=== PATIENT | female | born 1970 ===

== ENCOUNTER → 2021-07-25 13:21 | Outpatient (BNVA) | payer OTHER, SELFPAY | PROVIDERS: PCP Nurse Practitioner Adult Health | DX: N20.0 Calculus of kidney (principal) | CPT/HCPCS: 51798; 99212 ==

== ENCOUNTER 2021-09-03 15:52 | Outpatient (REF) | payer OTHER, SELFPAY ==
--- NOTE | ~2021-09-03 | US_ITS ---
EXAMINATION: US RETROPERITONEAL LIMITED (RENAL ONLY) CLINICAL INFORMATION: Calculus of kidney. COMPARISON: X-ray KUB 12/02/2017 and 11/11/2017. TECHNIQUE: Real-time imaging of the kidneys. FINDINGS: RIGHT KIDNEY: 11.0 x 5.4 x 5.7 cm (SAG x AP x TRV). The kidney is normal in size, contour, and echogenicity. Renal cortical thickness is normal. No calculi or focal parenchymal lesions. No hydronephrosis. LEFT KIDNEY: 12.0 x 5.6 x 5.1 cm (SAG x AP x TRV). The kidney is normal in size, contour, and echogenicity. Renal cortical thickness is normal. No calculi or focal parenchymal lesions. No hydronephrosis. US/US renal BI IMPRESSION: Normal renal ultrasound. No renal calculi are visualized..
== END 2021-09-03 15:53 | disposition home or self-care (01) ==
LOC: HO.US 15:52
DX: N20.0 Calculus of kidney (principal)
CPT/HCPCS: 76775

== ENCOUNTER 2022-05-29 09:00 | Outpatient (REF) | payer OTHER, SELFPAY ==
--- NOTE | ~2022-05-29 | US_ITS ---
EXAMINATION: US RETROPERITONEAL LIMITED (RENAL ONLY) CLINICAL INFORMATION: Calculus of kidney. COMPARISON: Renal ultrasound 09/03/2021. X-ray KUB 12/02/2017 and 11/11/2017. TECHNIQUE: Real-time imaging of the kidneys. FINDINGS: RIGHT KIDNEY: 11.1 x 5.0 x 5.0 cm (SAG x AP x TRV). The kidney is normal in size, contour, and echogenicity. Renal cortical thickness is normal. Small 7 x 5 x 4 mm cyst in the upper pole. No renal calculi or hydronephrosis. LEFT KIDNEY: 11.0 x 5.2 x 5.6 cm (SAG x AP x TRV). The kidney is normal in size, contour, and echogenicity. Renal cortical thickness is normal. No calculi or focal parenchymal lesions. No hydronephrosis. US/US renal BI IMPRESSION: Small right renal cyst. No stone seen.
== END 2022-05-29 09:01 | disposition home or self-care (01) ==
LOC: HO.US 09:00
PROVIDERS: PCP Nurse Practitioner Family
DX: N20.0 Calculus of kidney (principal)
CPT/HCPCS: 76775

== ENCOUNTER 2022-06-24 10:44 | Outpatient (REF) | payer OTHER, SELFPAY ==
[2022-06-24 17:08] LABS: Urine Cytology See Pathology rpt
== END 2022-06-24 10:45 | disposition home or self-care (01) ==
LOC: HO.LAB 10:44
PROVIDERS: PCP Nurse Practitioner Family; Visit Provider Nurse Practitioner Family
DX: R31.29 Other microscopic hematuria (principal); N20.0 Calculus of kidney; N28.1 Cyst of kidney, acquired
CPT/HCPCS: 88112; 99212

== ENCOUNTER 2022-11-18 11:04 | Outpatient (REF) | payer OTHER, SELFPAY ==
--- NOTE | ~2022-11-18 | US_ITS ---
EXAMINATION: US RETROPERITONEAL LIMITED (RENAL ONLY) CLINICAL INFORMATION: Calculus of kidney. COMPARISON: Renal ultrasound 05/29/2022 TECHNIQUE: Real-time imaging of the kidneys. FINDINGS: RIGHT KIDNEY: 10.4 x 5.4 x 4.5 cm (SAG x AP x TRV). The kidney is normal in size, contour, and echogenicity. Renal cortical thickness is normal. No renal calculi or hydronephrosis. Benign-appearing 0.7 cm renal cyst, no follow-up imaging recommended. LEFT KIDNEY: 11.4 x 5.6 x 5.8 cm (SAG x AP x TRV). The kidney is normal in size, contour, and echogenicity. Renal cortical thickness is normal. No calculi or focal parenchymal lesions. No hydronephrosis. US/US renal BI IMPRESSION: No hydronephrosis or nephrolithiasis.
== END 2022-11-18 11:05 | disposition home or self-care (01) ==
LOC: HO.US 11:04
PROVIDERS: Visit Provider Nurse Practitioner Family
DX: N20.0 Calculus of kidney (principal); N28.1 Cyst of kidney, acquired
CPT/HCPCS: 76775

== ENCOUNTER → 2022-12-23 15:32 | Outpatient (BNVA) | payer OTHER, SELFPAY | PROVIDERS: Visit Provider Nurse Practitioner Family | DX: N28.1 Cyst of kidney, acquired (principal); N20.0 Calculus of kidney | CPT/HCPCS: 99212 ==

== ENCOUNTER 2023-12-03 14:11 | Outpatient (REF) | payer OTHER, SELFPAY ==
--- NOTE | ~2023-12-03 | US_ITS ---
EXAMINATION: US RETROPERITONEAL LIMITED (RENAL ONLY) CLINICAL INFORMATION: Calculus of kidney. . COMPARISON: Renal ultrasound 11/18/2022 and 05/29/2022. X-ray abdomen KUB 12/02/2017 and 11/11/2017. TECHNIQUE: Real-time imaging of the kidneys. Limited visualization due to bowel gas. FINDINGS: RIGHT KIDNEY: 10.7 x 5.4 x 5.8 cm (SAG x AP x TRV). No hydronephrosis. No renal calculi. Renal cortical thickness is normal. Limited visualization. 0.8 cm [id number] pole pole cyst with benign features. There is no indication for follow-up imaging. LEFT KIDNEY: 11.9 x 5.2 x 5.1 cm (SAG x AP x TRV). No hydronephrosis. No renal calculi. Renal cortical thickness is normal. Limited visualization. US/US renal BI IMPRESSION: No hydronephrosis. No renal calculi.
== END 2023-12-03 14:12 | disposition home or self-care (01) ==
LOC: HO.US 14:11
PROVIDERS: PCP Nurse Practitioner Family; Visit Provider Nurse Practitioner Family
DX: N20.0 Calculus of kidney (principal)
CPT/HCPCS: 76775

== ENCOUNTER 2023-12-21 14:10 | Outpatient (AMB) | payer OTHER, SELFPAY ==
--- NOTE | 2023-12-21 14:24 | MHC.OFFVIS ---
Intake Visit Reasons: 1y/US(set) Intake Note: Patient is present for follow up kidney stone/ultrasound Imagin12/03/23 Urology Medications: Vitamin B6 Blood Thinner: none Twister Doffer Required: No Accompanied by: Self / Same As Patient Allergies No Known Allergies [No Known Allergies*] Allergy (Verified 12/21/23 14:53) Medication List - Last Reconciled 12/21/23 by FLYNN Burrell sertraline 50 mg PO DAILY tramadol 50 mg PO Q6H PRN HPI Comments Details: Angelica is a very pleasant 53-year-old a female patient of Dr. Otto. She presents to the office today for follow-up of her nephrolithiasis, microscopic hematuria, and renal cysts. In discussion with the patient today she reports since her last office visit here approximately 1 year ago she has been feeling and doing well. She currently denies any urological issues or concerns. She reports be happy with current voiding parameters. Recent renal imaging results reviewed with the patient today. Bilateral kidneys with no hydronephrosis or renal calculi. 0 voiding cm mid to lower pole cyst with benign features. That requires no follow-up imaging per radiology report. In office urinalysis results reviewed with the patient today 2+ microscopic hematuria noted. Discussed at length potential causes of microscopic hematuria. Discussed further microscopic hematuria workup. When asked she does report a previous history of nicotine dependence however denies any previous known workplace chemical exposure. When asked she continues to be compliant with vitamin B6 daily and drinking plenty of water daily. When asked denies urinary urgency, urinary frequency, incontinence, nocturia, hematuria, dysuria, foul smelling urine, changes to urinary stream, flank pain, fever, and or chills. She otherwise offers no other issues or concerns at this time. Urine cytology 06/19 Negative for high-grade urothelial carcinoma. [facility] Medical History Calculus of kidney Renal cyst Review of Systems Const All systems reviewed & are unremarkable except as noted in HPI and below Reports no additional complaints Eyes Reports no additional complaints ENT Reports no additional complaints Card Reports no additional complaints Resp Reports no additional complaints GI Reports no additional complaints Reports as per HPI Musc Reports no additional complaints Neuro Reports no additional complaints Psych Reports no additional complaints Endo Reports no additional complaints Power/Lymph Reports no additional complaints Aller/Immun Reports no additional complaints Physical Exam Const General: cooperative, healthy appearing, comfortable, no acute distress, well developed, alert and awake Orientation/consciousness: patient oriented x3 Limitations: no limitations HEENT Head: Yes normal to inspection, Yes normocephalic and Yes atraumatic Ears: hearing grossly normal bilaterally Eyes General: appearance normal, both eyes and all related structures Neck Neck: Yes normal visual inspection and Yes trachea midline Chest Chest palpation & inspection: normal inspection of the chest Resp Effort & Inspection: normal respiratory effort and able to speak in complete sentences Cardio Rate: regular rate GI Inspection: Yes normal to inspection General: Yes no CVA tenderness Back/Spine/Pelvis Back: no CVA tenderness Skin General skin exam: no rashes or lesions noted Neuro General: patient oriented x3 Extrem General: Yes normal to inspection Psych Appearance: grossly normal and well kempt Mental Status: mental status grossly normal Speech and movement: Normal speech and movement present and Clear speech present Affect: normal affect Attitude: cooperative Thought process: Normal thought process present Thought content: Normal thought content present Insight: Fair insight present (Psych) Judgement: Fair judgement present (Psych) Results AMB Urinalysis, Automated UA Leukoctes 0 Aide/uL Last Edit by [employer] on 12/21/23 14:43 UA Nitrite Negative Last Edit by [employer] on 12/21/23 14:43 UA Urobilinogen 0.2 mg/dL Last Edit by [employer] on 12/21/23 14:43 UA Protein 15 mg/dL Last Edit by [employer] on 12/21/23 14:43 UA pH 5.5 Last Edit by [employer] on 12/21/23 14:43 UA Blood 80 Olu/uL Last Edit by [employer] on 12/21/23 14:43 UA Specific [place] 1.025 Last Edit by [employer] on 12/21/23 14:43 UA Ketone Negative Last Edit by [employer] on 12/21/23 14:43 UA Bilirubin 0 mg/dL Last Edit by [employer] on 12/21/23 14:43 UA Glucose 0 mg/dL Last Edit by [employer] on 12/21/23 14:43 Results Reviewed Results Reviewed: Laboratory Last Values Urine pH (Auto) 5.5 12/21/23 14:42 Specific [place] (Auto) 1.025 12/21/23 14:42 Urine Protein (Auto) 15 mg/dL 12/21/23 14:42 Glucose (UA)(Auto) 0 mg/dL 12/21/23 14:42 Urine Ketones (Auto) Negative 12/21/23 14:42 Urine Blood (Auto) 80 Olu/uL 12/21/23 14:42 Urine Nitrite (Auto) Negative 12/21/23 14:42 Urine Bilirubin (Auto) 0 mg/dL 12/21/23 14:42 Urine Urobilinogen (Auto) 0.2 mg/dL 12/21/23 14:42 Leukocyte Esterase (Auto) 0 Aide/uL 12/21/23 14:42 Date of Service: 12/03/23 EXAMINATION: US RETROPERITONEAL LIMITED (RENAL ONLY) FINDINGS: RIGHT KIDNEY: 10.7 x 5.4 x 5.8 cm (SAG x AP x TRV). No hydronephrosis. No renal calculi. Renal cortical thickness is normal. Limited visualization. 0.8 cm psc-fi-dgyim pole pole cyst with benign features. There is no indication for follow-up imaging. LEFT KIDNEY: 11.9 x 5.2 x 5.1 cm (SAG x AP x TRV). No hydronephrosis. No renal calculi. Renal cortical thickness is normal. Limited visualization. IMPRESSION: No hydronephrosis. No renal calculi. Assessment & Plan Assessment & Plan (1) Microscopic hematuria: Code(s): R31.29 - Other microscopic hematuria Category: Medical (2) Renal cyst: Code(s): N28.1 - Cyst of kidney, acquired Category: Medical (3) Calculus of kidney: Code(s): N20.0 - Calculus of kidney Category: Medical Plan In office urinalysis results reviewed with the patient today; as noted above; will send for urine cytology Recent renal imaging results reviewed with the patient today; as noted above. Patient currently denies any bothersome urinary issues or concerns. She reports be happy with current voiding parameters. Discussed at length potential causes of microscopic hematuria; discussed further workup to include in office cystoscopy; however patient declines at this time. Discussed, educated, and stressed the importance of drinking plenty of water daily. Continue adding 1 oz of lemon juice to water daily. Will obtain renal ultrasound in 1 year. Follow-up in 1 year with imaging to be completed prior; or sooner with any issues, concerns, and or questions. Orders: Orders AMB Urinalysis Automated Today Z13.9 - Encounter for screening, unspecified US renal BI 1 Year N20.0 - Calculus of kidney, N28.1 - Cyst of kidney, acquired, R31.29 - Other microscopic hematuria Urine Cytology Today R31.29 - Other microscopic hematuria Patient Instructions: The patient had an opportunity to ask questions regarding the treatment plan. All questions were answered. Physical exam, labs, and imaging were discussed and reviewed in detail. As well as risks, benefits, and discussion of treatment choices. No major barriers to understanding were identified. The patient expressed understanding and agreement with the above treatment plan. The patient was made aware they should contact our office by phone for worsening of their current condition, the appearance of new symptoms, or with any questions or concerns. Compliance is encouraged with any medications and follow up testing that is ordered. It is a privilege to be allowed the opportunity to participate in? your urological care.? Again, if you have any questions or concerns If you have any questions or concerns please do not hesitate to contact me. The office is [phone]. This note is constructed using voice recognition software. While every effort has been made to ensure accuracy solar energy sales specialist errors may have been included. Yours sincerely, FLYNN Burrell Coding Level of Care Code Est Pt Level 3 (94799) Diagnoses Microscopic hematuria R31.29 Renal cyst N28.1 Calculus of kidney N20.0
== END 2023-12-21 14:51 | disposition home or self-care (01) ==
PROVIDERS: PCP Nurse Practitioner Family; Visit Provider Nurse Practitioner Family
DX: R31.29 Other microscopic hematuria (principal); N28.1 Cyst of kidney, acquired; N20.0 Calculus of kidney; Z13.9 Encounter for screening, unspecified
CPT/HCPCS: 99213

== ENCOUNTER 2023-12-21 14:10 | Outpatient (REF) | payer OTHER, SELFPAY ==
[2023-12-21 17:33] LABS: Urine Cytology See Pathology rpt
== END 2023-12-21 14:11 | disposition home or self-care (01) ==
LOC: HO.LNP 14:10
PROVIDERS: PCP Nurse Practitioner Family; Visit Provider Nurse Practitioner Family
DX: R31.29 Other microscopic hematuria (principal); N28.1 Cyst of kidney, acquired; N20.0 Calculus of kidney
CPT/HCPCS: 81003; 88112; 99212

== ENCOUNTER 2024-12-14 15:27 | Outpatient (REF) | payer OTHER, SELFPAY ==
--- NOTE | ~2024-12-14 | US_ITS ---
CLINICAL HISTORY: N20.0 - Calculus of kidney US renal with Color Doppler Comparison: None Findings: Right kidney normal size and echotexture, 9.5 cm length. No hydronephrosis calculus or mass. Normal color flow. Benign renal cortical cyst midpole measuring 10 x 10 x 10 mm. Left kidney normal size and echotexture, 12.0 cm length. No hydronephrosis calculus or mass. Normal color flow. Impression: 1. No nephrolithiasis or hydronephrosis. Incidental renal cortical cysts on the right. This document has been electronically signed by: Austin Gaytan MD on 12/15/2024 09:20:02
--- OUTSIDE RECORDS SUMMARY | 2024-12-14 17:42 | XMS_ITS | Clinical Summary ---
Author Organization [facility] Address [address] [place] [address] Care Team Providers Care Calender Wind Up Tender Name Role Phone Linda Dill MD Primary Care Provider [phone] Allergies No known active allergies Medications Medication Sig Dispensed Refills Start Date End Date Status traMADol (ULTRAM) 50 MG tablet TAKE 1 TABLET BY MOUTH EVERY 6 (SIX) HOURS NEEDED. 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 Atypical lobular hyperplasia (ALH) of right [address] 12/27/2019 Social History Tobacco Use Types Packs/Day Years Used Date Smoking Tobacco: Every Day Smokeless Tobacco: Never Alcohol Use Standard Drinks/Week Comments Yes 0 (1 standard drink = 0.6 oz pur e alcohol) social Sex and Gender Information Value Date Recorded Sex Assigned at Not on file Gender Identity Not on file Sexual Orientation Not on file Job Start Date Occupation Industry Not on file Not on file Not on file Last Filed Vital Signs Vital Sign Reading Time Taken Comments Blood Pressure 97/71 04/20/2024 3:46 PM EDT Pulse 90 04/20/2024 3:46 PM EDT Temperature 36.3 C (97.4 F) 04/20/2024 3:46 PM EDT Respiratory Rate - - Oxygen Saturation 98% 04/20/2024 3:46 PM EDT Inhaled Oxygen Concentration - - Weight 75.8 kg (167 lb 3.2 oz) 04/20/2024 3:46 P M EDT Height 157.5 cm (5' 2 ) 04/20/2024 3:46 PM EDT Body Mass Index 30.58 04/20/2024 3:46 PM EDT Plan of Treatment Health Maintenance Due Date Last Done Comments Hepatitis B Vaccines (1 of 3 - 3-dose series) 1968 Hepatitis C Screening 1968 COVID-19 Vaccine (#1) 1973 Pneumococcal Vaccine (1 of 2 - PCV) 1974 Depression Screening 1980 Preventative Health Evaluation 1986 Tobacco Cessation Counseling 1986 Shingrix-Zoster Vaccine (1 o f 2) 11/12/1987 Cervical Cancer Screening (Pap Smear) 1989 Colon Cancer Screening (Colonoscopy) 2013 Breast Cancer Screening (Mammogram) 2018 Influenza Vaccine (Season Ended) 2025 DTap / Tdap / Td (2 - Td or Tdap) 09/30/2025 10/01/2015, 12/11/2004 RSV Ped < 20 months Aged Out No longe r eligible based on patient's age to complete this topic Care Teams Calender Wind Up Tender Relationship Specialty Start Date End Date Linda Dill MD [id number], [place] PCP - General Family Medicine 12/27/19
== END 2024-12-14 15:28 | disposition home or self-care (01) ==
LOC: HO.US 15:27
PROVIDERS: PCP Nurse Practitioner Family; Visit Provider Nurse Practitioner Family
DX: N20.0 Calculus of kidney (principal); R31.29 Other microscopic hematuria; N28.1 Cyst of kidney, acquired
CPT/HCPCS: 76775

== ENCOUNTER → 2024-12-14 15:30 | Outpatient (BNV) | payer OTHER, SELFPAY | PROVIDERS: PCP Nurse Practitioner Family; Visit Provider Radiology Diagnostic Radiology | DX: N20.0 Calculus of kidney (principal) | CPT/HCPCS: 76775 ==

== ENCOUNTER 2024-12-19 14:26 | Outpatient (AMB) | payer OTHER, SELFPAY ==
--- NOTE | 2024-12-19 14:28 | A.OFFVIS_ITS ---
Intake Visit Reasons: 1yr/US Intake Note: Patient is present for follow up kidney stone/ultrasound Imagin12/14/24 Urology Medications: none Blood Thinner: none Oil Field Worker Required: No Accompanied by: Self / Same As Patient Allergies No Known Allergies (No Known Allergies*) Allergy (Verified 12/19/24 15:03) Medication List - Last Reconciled 12/19/24 by FLYNN Burrell atorvastatin 10 mg PO DAILY sertraline 50 mg PO DAILY tirzepatide mg subcut tramadol 50 mg PO Q6H PRN HPI Comments Details: Angelica is a very pleasant 54 year-old a female patient of Dr. Otto. She presents to the office today for follow-up of her nephrolithiasis, microscopic hematuria, and renal cysts. In discussion with the patient today she reports since her last office visit here approximately 1 year ago she has been feeling and doing well. She currently denies any urological issues or concerns. She reports be happy with current voiding parameters. Recent renal imaging results reviewed with the patient today. Bilateral kidneys with no hydronephrosis or renal calculi. Incidental renal cortical cysts on the right largest measuring 10 mm. Unable to obtain urine for urinalysis today as patient unable to void. She discusses having intentionally lost approximately 30 lb. She reports drinking plenty of water daily. When asked denies urinary urgency, urinary frequency, incontinence, nocturia, hematuria, dysuria, foul smelling urine, changes to urinary stream, flank pain, fever, and or chills. She otherwise offers no other issues or concerns at this time. Urine cytology 06/19 and 12/20 Negative for high-grade urothelial carcinoma. [facility] Medical History Renal cyst Calculus of kidney Review of Systems Const All systems reviewed & are unremarkable except as noted in HPI and below Reports no additional complaints Eyes Reports no additional complaints ENT Reports no additional complaints Card Reports no additional complaints Resp Reports no additional complaints GI Reports no additional complaints Reports as per HPI Musc Reports no additional complaints Neuro Reports no additional complaints Psych Reports no additional complaints Endo Reports no additional complaints Power/Lymph Reports no additional complaints Aller/Immun Reports no additional complaints Physical Exam Const General: cooperative, healthy appearing, comfortable, no acute distress, well developed, alert and awake Orientation/consciousness: patient oriented x3 Limitations: no limitations HEENT Head: Yes normal to inspection, Yes normocephalic and Yes atraumatic Ears: hearing grossly normal bilaterally Eyes General: appearance normal, both eyes and all related structures Neck Neck: Yes normal visual inspection and Yes trachea midline Chest Chest palpation & inspection: normal inspection of the chest Resp Effort & Inspection: normal respiratory effort and able to speak in complete sentences Cardio Rate: regular rate GI Inspection: Yes normal to inspection General: Yes no CVA tenderness Back/Spine/Pelvis Back: no CVA tenderness Skin General skin exam: no rashes or lesions noted Neuro General: patient oriented x3 Extrem General: Yes normal to inspection Psych Appearance: grossly normal and well kempt Mental Status: mental status grossly normal Speech and movement: Normal speech and movement present and Clear speech present Affect: normal affect Attitude: cooperative Thought process: Normal thought process present Thought content: Normal thought content present Insight: Fair insight present (Psych) Judgement: Fair judgement present (Psych) Results Reviewed Results Reviewed: Date of Service: 12/14/24 Procedure(s): US renal BI Findings: Right kidney normal size and echotexture, 9.5 cm length. No hydronephrosis calculus or mass. Normal color flow. Benign renal cortical cyst midpole measuring 10 x 10 x 10 mm. Left kidney normal size and echotexture, 12.0 cm length. No hydronephrosis calculus or mass. Normal color flow. Impression: 1. No nephrolithiasis or hydronephrosis. Incidental renal cortical cysts on the right. Assessment & Plan Assessment & Plan (1) Microscopic hematuria: Code(s): R31.29 - Other microscopic hematuria Category: Medical (2) Renal cyst: Code(s): N28.1 - Cyst of kidney, acquired Category: Medical (3) Calculus of kidney: Code(s): N20.0 - Calculus of kidney Category: Medical Plan Recent renal imaging results reviewed with the patient today; as noted above. Patient currently denies any bothersome urinary issues or concerns. She reports be happy with current voiding parameters. Discussed, educated, and stressed the importance of drinking plenty of water daily. Continue adding 1 oz of lemon juice to water daily. Will obtain renal ultrasound in 1 year. Follow-up in 1 year with imaging to be completed prior; or sooner with any issues, concerns, and or questions. Orders: Orders US renal BI 1 Year N20.0 - Calculus of kidney Patient Instructions: The patient had an opportunity to ask questions regarding the treatment plan. All questions were answered. Physical exam, labs, and imaging were discussed and reviewed in detail. As well as risks, benefits, and discussion of treatment choices. No major barriers to understanding were identified. The patient expressed understanding and agreement with the above treatment plan. The patient was made aware they should contact our office by phone for worsening of their current condition, the appearance of new symptoms, or with any questions or concerns. Compliance is encouraged with any medications and follow up testing that is ordered. It is a privilege to be allowed the opportunity to participate in? your urological care.? Again, if you have any questions or concerns If you have any questions or concerns please do not hesitate to contact me. The office is [phone]. This note is constructed using voice recognition software. While every effort has been made to ensure accuracy professor of sport management errors may have been included. Yours sincerely, FLYNN Burrell Coding Level of Care Code Est Pt Level 3 (46230) Diagnoses Microscopic hematuria R31.29 Renal cyst N28.1 Calculus of kidney N20.0
--- OUTSIDE RECORDS SUMMARY | 2024-12-19 16:00 | XMS_ITS | Clinical Summary ---
Author Organization [facility] Address [address] [place] [address] Care Team Providers Care Bowl Sander Name Role Phone Linda Dill MD Primary Care Provider [phone] Allergies No known active allergies Medications Medication [...] age to complete this topic Care Teams Bowl Sander Relationship Specialty Start Date End Date Linda Dill MD [id number] [place], [place] PCP - General Family Medicine 12/27/19
== END 2024-12-19 14:59 | disposition home or self-care (01) ==
LOC: HO.HUSH 14:26
PROVIDERS: PCP Nurse Practitioner Family; Visit Provider Nurse Practitioner Family
DX: R31.29 Other microscopic hematuria (principal); N28.1 Cyst of kidney, acquired; N20.0 Calculus of kidney
CPT/HCPCS: 99213

== ENCOUNTER → 2024-12-19 14:26 | Outpatient (BNVA) | payer OTHER, SELFPAY | PROVIDERS: PCP Nurse Practitioner Family; Visit Provider Nurse Practitioner Family | DX: N20.0 Calculus of kidney (principal); R31.29 Other microscopic hematuria; N28.1 Cyst of kidney, acquired | CPT/HCPCS: 99212 ==